=== PATIENT | male | born 1945 | race Two or more races ===

== ENCOUNTER → 2018-01-27 | Outpatient (CLI) | payer MEDICARE, MEDICAID | END | disposition home or self-care (01) | LOC: HKI 10:50 | DX: M19.012 Primary osteoarthritis, left shoulder (principal); M19.011 Primary osteoarthritis, right shoulder; M17.11 Unilateral primary osteoarthritis, right knee; I10 Essential (primary) hypertension; I50.9 Heart failure, unspecified; Z95.1 Presence of aortocoronary bypass graft | CPT/HCPCS: 73030; 73030-50 ==

== ENCOUNTER 2018-05-01 07:46 | Observation (INO) | payer MEDICARE, OTHER, MEDICAID ==
[~2018-05-01 07:46] MED LIST: ACETAMINOPHEN 500 MG TAB PO; CEFAZOLIN 2 GM/50 ML (PMX) 50 ML (FOR WT < 120 KG) IVPB; GLYCOPYRROLATE 0.4 MG INJ; LACTATED RINGER'S 1,000 ML IV; LIDOCAINE 2% (SDV) 5 ML INJ; NEOSTIGMINE 3 MG/3 ML SYRINGE
[2018-05-01] MEDS ORDERED: ACETAMINOPHEN 1000MG/100ML IV 100 ML IVPB (10:00)
[2018-05-01] MEDS: DEXAMETHASONE 4 MG/ML 1 ML INJ IV (10:05)
[2018-05-01] MEDS: LANSOPRAZOLE 30 MG CAP PO (10:05)
[2018-05-01] MEDS: morphine 4 MG/ML VIAL IV (10:06)
[2018-05-01] MEDS: ACETAMINOPHEN 1000MG/100ML IV 100 ML IVPB (10:50)
[2018-05-01] MEDS ORDERED: MIDAZOLAM 1 MG/ML 2 ML INJ (12:08)
[2018-05-01] MEDS ORDERED: FENTAnyl 50 MCG/ML VIAL (12:08)
[2018-05-01] MEDS ORDERED: MAGNESIUM HYDROXIDE 30ML CUP PO (13:00)
[2018-05-01] MEDS ORDERED: SENNA/DOCUSATE NA (8.6MG/50MG) TAB PO (13:00)
[2018-05-01] MEDS ORDERED: NALOXONE (0.4 MG/ML) INJ IV (13:00)
[2018-05-01] MEDS ORDERED: NA PHOSPHATE/BIPHOS 133 ML ENEMA PR (13:00)
[2018-05-01] MEDS ORDERED: oxyCODONE 5 MG TAB PO ×2 (13:00)
[2018-05-01] MEDS ORDERED: BETHANECHOL 25 MG TAB PO (13:00)
[2018-05-01] MEDS ORDERED: BISACODYL 10 MG SUPP PR (13:00)
[2018-05-01] MEDS: POLYMYXIN B 500000 UNIT INJ (13:06)
[2018-05-01] MEDS: BACITRACIN 50000 UNITS INJ IRR (13:06)
[2018-05-01] MEDS: TRANEXAMIC ACID 1,000 MG in D5W 100 ML AT CLOSURE X1 IVPB (13:10)
[2018-05-01] MEDS: TRANEXAMIC ACID 1,000 MG in D5W 100 ML AT INCISION X1 IVPB ×2 (13:11→13:47)
[2018-05-01] MEDS ORDERED: PROPOFOL 20 ML (13:40)
[2018-05-01] MEDS ORDERED: CEFAZOLIN 1 GM INJ (13:40)
[2018-05-01] MEDS ORDERED: ROCURONIUM 50 MG INJ (13:40)
[2018-05-01] MEDS ORDERED: GLYCOPYRROLATE 0.4 MG INJ (13:43)
[2018-05-01] MEDS ORDERED: NEOSTIGMINE 3 MG/3 ML SYRINGE (13:43)
[2018-05-01] MEDS ORDERED: LABETALOL HCL 20MG INJ IV (14:30)
[2018-05-01] MEDS ORDERED: KETOROLAC 30 MG INJ IV (14:30)
[2018-05-01] MEDS ORDERED: FENTAnyl 50 MCG/ML VIAL IV ×3 (14:30)
[2018-05-01] MEDS ORDERED: ALBUTEROL 0.083% (NEB) 2.5 MG/3 ML AMP HHN (14:30)
[2018-05-01] MEDS ORDERED: ONDANSETRON 4 MG INJ IV (14:30)
[2018-05-01] MEDS ORDERED: hydrALAzine 20 MG INJ IV (14:30)
[2018-05-01] MEDS ORDERED: MEPERIDINE 25 MG INJ IV (14:30)
[2018-05-01] MEDS ORDERED: EPHEDrine SULFATE 50 MG/5 ML SYG IV (14:30)
[2018-05-01] MEDS ORDERED: METOCLOPRAMIDE 10 MG INJ IV (14:30)
[2018-05-01] MEDS ORDERED: HYDROmorphONE 1 MG/5 ML IV SYRINGE IV ×3 (14:30)
[2018-05-01] MEDS ORDERED: DIPHENHYDRAMINE 50 MG INJ IV (14:30)
[2018-05-01] MEDS ORDERED: CEFAZOLIN 1 GM/50 ML (PMX) 50 ML IVPB (14:44)
[2018-05-01] MEDS: SOD CHLORIDE 0.9% 1,000 ML IV (16:36)
[2018-05-01] MEDS: DOCUSATE SODIUM 100 MG CAP PO (16:36)
[2018-05-01] MEDS: ASPIRIN (EC) 325 MG TAB PO (16:36)
[2018-05-01] MEDS: ONDANSETRON 4 MG INJ IV ×2 (16:58→23:34)
[2018-05-01] MEDS: oxyCODONE 5 MG TAB PO ×2 (17:40→20:59)
[2018-05-01] MEDS: INSULIN ASPART [NOVOLOG] 3 ML PEN SC ×2 (18:20→20:54)
[2018-05-01] MEDS: glipiZIDE 5 MG TAB PO (20:49)
[2018-05-01] MEDS: INSULIN GLARGINE [LANTus] (100 UNITS/ML) SYG SC (20:53)
[2018-05-01] MEDS: CELECOXIB 100 MG CAP PO (21:00)
[2018-05-01] MEDS: GABAPENTIN 100 MG CAP PO (21:00)
[2018-05-01] MEDS: CEFAZOLIN 1 GM/50 ML (PMX) 50 ML IVPB (23:34)
[2018-05-02] MEDS: SOD CHLORIDE 0.9% 1,000 ML IV ×2 (01:02→13:32)
[2018-05-02] MEDS: oxyCODONE 5 MG TAB PO ×5 (01:07→20:07)
[2018-05-02] MEDS: DIPHENHYDRAMINE 50 MG INJ IV (03:49)
[2018-05-02 05:23] LABS: ADD MAN DIFF? NO
[2018-05-02 05:29] LABS: BASOPHIL # 0.1 10^3/ul (0.0-0.1); BASOPHILS % 0.8 % (0.0-2.0); EOSINOPHILS # 0.1 10^3/ul (0.0-0.5); EOSINOPHILS % 1.2 % (0.0-7.0); HEMATOCRIT 34.7 % (42.0-52.0); LYMPHOCYTES # 1.5 10^3/ul (0.8-2.9); LYMPHOCYTES % 16.3 % (15.0-51.0); MEAN CORPUSCULAR HEMOGLOBIN 28.6 pg (29.0-33.0); MEAN CORPUSCULAR HGB CONC 31.7 g/dl (32.0-37.0); MEAN CORPUSCULAR VOLUME 90.4 fl (82.0-101.0); MEAN PLATELET VOLUME 11.3 fl (7.4-10.4); MONOCYTE # 0.9 10^3/ul (0.3-0.9); MONOCYTES % 10.3 % (0.0-11.0); NEUTROPHIL # 6.5 10^3/ul (1.6-7.5); PLATELET COUNT 165 10^3/UL (140-415); RED BLOOD COUNT 3.84 10^6/ul (4.70-6.10); RED CELL DISTRIBUTION WIDTH 14.4 % (11.5-14.5)
[2018-05-02 05:29] LABS: WHITE BLOOD COUNT 9.1 10^3/ul (4.8-10.8)
[2018-05-02] MEDS: ONDANSETRON 4 MG INJ IV ×2 (06:18→07:00)
[2018-05-02] MEDS: CEFAZOLIN 1 GM/50 ML (PMX) 50 ML IVPB ×2 (06:18→15:15)
[2018-05-02 06:28] LABS: ANION GAP 9 (5-13); BLOOD UREA NITROGEN 27 mg/dl (7-20); CALCIUM 8.4 mg/dl (8.4-10.2); CARBON DIOXIDE 29 mmol/L (21-31); CHLORIDE 99 mmol/L (97-110); CREATININE 1.33 mg/dl (0.61-1.24); GLUCOSE 97 mg/dl (70-220); POTASSIUM 4.1 mmol/L (3.5-5.1); SODIUM 137 mmol/L (135-144)
[2018-05-02] MEDS: LISINOPRIL 20 MG TAB PO (06:38)
[2018-05-02] MEDS: ISOSORBIDE MONONITRATE 20 MG TAB PO ×2 (06:38→21:19)
[2018-05-02] MEDS: INSULIN ASPART [NOVOLOG] 3 ML PEN SC ×4 (07:50→21:29)
[2018-05-02] MEDS: GABAPENTIN 100 MG CAP PO ×2 (08:25→21:18)
[2018-05-02] MEDS: ASPIRIN (EC) 81 MG TAB PO (08:25)
[2018-05-02] MEDS: FERROUS FUMARATE (SR) TAB PO ×2 (08:25→21:18)
[2018-05-02] MEDS: DOCUSATE SODIUM 100 MG CAP PO ×2 (08:25→21:18)
[2018-05-02] MEDS: CELECOXIB 100 MG CAP PO ×3 (08:25→21:00)
[2018-05-02] MEDS: ASPIRIN (EC) 325 MG TAB PO (08:26)
[2018-05-02] MEDS: glipiZIDE 5 MG TAB PO ×2 (08:26→22:16)
[2018-05-02] MEDS: HYDROmorphONE 1 MG/ML SYG IV (16:52)
[2018-05-02] MEDS: INSULIN GLARGINE [LANTus] (100 UNITS/ML) SYG SC (21:29)
[2018-05-03] MEDS: SOD CHLORIDE 0.9% 1,000 ML IV (02:02)
[2018-05-03] MEDS: oxyCODONE 5 MG TAB PO ×3 (05:06→12:38)
[2018-05-03] MEDS: ONDANSETRON 4 MG INJ IV (05:15)
[2018-05-03 05:17] LABS: ADD MAN DIFF? NO
[2018-05-03 05:22] LABS: BASOPHIL # 0.1 10^3/ul (0.0-0.1); BASOPHILS % 0.8 % (0.0-2.0); EOSINOPHILS # 0.4 10^3/ul (0.0-0.5); EOSINOPHILS % 5.1 % (0.0-7.0); HEMATOCRIT 31.5 % (42.0-52.0); HEMOGLOBIN 10.2 g/dl (14.0-18.0); LYMPHOCYTES # 1.1 10^3/ul (0.8-2.9); LYMPHOCYTES % 14.6 % (15.0-51.0); MEAN CORPUSCULAR HEMOGLOBIN 29.5 pg (29.0-33.0); MEAN CORPUSCULAR HGB CONC 32.4 g/dl (32.0-37.0); MEAN PLATELET VOLUME 11.1 fl (7.4-10.4); MONOCYTES % 13.1 % (0.0-11.0); NEUTROPHILS % 65.9 % (39.0-77.0); PLATELET COUNT 147 10^3/UL (140-415); RED BLOOD COUNT 3.46 10^6/ul (4.70-6.10); RED CELL DISTRIBUTION WIDTH 14.4 % (11.5-14.5)
[2018-05-03 05:22] LABS: WHITE BLOOD COUNT 7.7 10^3/ul (4.8-10.8)
[2018-05-03 06:01] LABS: ANION GAP 9 (5-13); BLOOD UREA NITROGEN 22 mg/dl (7-20); CALCIUM 8.4 mg/dl (8.4-10.2); CARBON DIOXIDE 30 mmol/L (21-31); CHLORIDE 101 mmol/L (97-110); CREATININE 1.36 mg/dl (0.61-1.24); GLUCOSE 92 mg/dl (70-220); POTASSIUM 4.9 mmol/L (3.5-5.1); SODIUM 140 mmol/L (135-144)
[2018-05-03] MEDS: PANTOPRAZOLE (EC) 40 MG TAB PO (06:26)
[2018-05-03] MEDS: ISOSORBIDE MONONITRATE 20 MG TAB PO (06:27)
[2018-05-03] MEDS: LISINOPRIL 20 MG TAB PO (06:30)
[2018-05-03] MEDS: INSULIN ASPART [NOVOLOG] 3 ML PEN SC ×2 (09:00→13:00)
[2018-05-03] MEDS: CELECOXIB 100 MG CAP PO (09:00)
[2018-05-03] MEDS: ASPIRIN (EC) 81 MG TAB PO (09:12)
[2018-05-03] MEDS: DOCUSATE SODIUM 100 MG CAP PO (09:12)
[2018-05-03] MEDS: glipiZIDE 5 MG TAB PO (09:12)
[2018-05-03] MEDS: FERROUS FUMARATE (SR) TAB PO (09:13)
[2018-05-03] MEDS: ASPIRIN (EC) 325 MG TAB PO (09:13)
[2018-05-03] MEDS: GABAPENTIN 100 MG CAP PO (09:13)
== END 2018-05-03 14:15 | disposition home health service (06) ==
LOC: REC 07:46 → MS1 14:40
PROVIDERS: Orthopaedic Surgery
DX: M17.11 Unilateral primary osteoarthritis, right knee (principal); I25.10 Atherosclerotic heart disease of native coronary artery without angina pectoris; Z95.1 Presence of aortocoronary bypass graft; I48.91 Unspecified atrial fibrillation; E11.9 Type 2 diabetes mellitus without complications; I11.0 Hypertensive heart disease with heart failure; I50.22 Chronic systolic (congestive) heart failure; G47.00 Insomnia, unspecified; K21.9 Gastro-esophageal reflux disease without esophagitis
CPT/HCPCS: 27447; 73560; 80048; 82962; 85025; 87081; 88304; 88311; 97110; 97116; 97162; 97166; 97530

== ENCOUNTER → 2018-05-22 | Outpatient (CLI) | payer MEDICARE, MEDICAID | END | disposition home or self-care (01) | LOC: HKI 09:58 | DX: Z09 Encounter for follow-up examination after completed treatment for conditions other than malignant neoplasm (principal); M25.561 Pain in right knee | CPT/HCPCS: 73560; 73560-RT ==